=== PATIENT | female | born 1940 | race Caucasian/White ===

== ENCOUNTER → 2019-03-23 10:37 | Outpatient (CLI) | payer MEDICARE, OTHER, SELFPAY ==
--- NOTE | 2019-03-23 | DI.MRI.S_ITS ---
PROCEDURE: MR LUMBAR SPINE WO CON INDICATIONS: LUMBAR SPINE PAIN TECHNIQUE: Noncontrast sagittal T1 spin echo and T2 fast echo, sagittal STIR, axial T1 and T2 fast spin echo through the lumbar spine. In cases with scoliosis, additional coronal T2 fast spin echo may be performed. COMPARISON: None. FINDINGS: Image quality: Excellent. Alignment and Curvature: There is normal bony alignment. Bone Marrow: Marrow is of normal overall signal. No acute vertebral body compression fractures. Spinal Cord: Conus medullaris terminates at the T12-L1 level. Visualized cord demonstrates normal signal and size. Paraspinous Soft Tissues: No paravertebral masses. T11-T12: Chronic disc height loss. No canal stenosis or foraminal stenosis. Facets are unremarkable. T12-L1: Mild disc bulge. No canal stenosis or foraminal stenosis. Mild facet hypertrophy. L1-L2: Minimal disc bulge. No canal stenosis or foraminal stenosis. Bilateral facet hypertrophy. L2-L3: Moderate disc bulge. Facet and ligament hypertrophy. Borderline canal stenosis. Patent foramina. L3-L4: Moderate chronic disc height loss. Moderate multifactorial canal stenosis secondary to disc bulge and facet and ligament hypertrophy. Moderate left foraminal narrowing with effacement of the left L3 nerve root sleeve. L4-L5: Moderate to severe chronic disc height loss. Diffuse disc bulge with small inferiorly extruded disc material eccentric to the right. Moderate to severe multifactorial canal stenosis secondary to disc bulge and facet and ligament hypertrophy. Mild bilateral foraminal narrowing. L5-S1: Mild disc height loss. No canal stenosis. Bilateral facet hypertrophy. Mild bilateral foraminal narrowing. IMPRESSION: 1. Multifactorial canal stenosis is moderate at L3-L4 and moderate to severe at L4-L5. 2. Findings at L4-L5 include a small right paracentral inferior disc extrusion 3. Multilevel facet hypertrophy. 4. Multilevel foraminal narrowing as described above. Dictated by: Rene Arzate M.D. on 03/23/2019 at 11:26 Approved by: Rene Arzate M.D. on 03/23/2019 at 11:38
== END ==
PROVIDERS: PCP Family Medicine; Visit Provider Family Medicine
DX: M51.26 Other intervertebral disc displacement, lumbar region (principal); M48.061 Spinal stenosis, lumbar region without neurogenic claudication
CPT/HCPCS: 72148

== ENCOUNTER → 2019-06-01 15:18 | Outpatient (CLI) | payer MEDICARE, OTHER, SELFPAY ==
--- NOTE | 2019-06-01 15:22 | DI.RAD.S_ITS ---
PROCEDURE: XR HIP W PEL IF DONE LT MIN 4V INDICATIONS: Lumbosacral spondylosis TECHNIQUE: AP pelvis with lateral view(s) of the bilateral hip(s). COMPARISON: None. FINDINGS: Bones: No fractures or dislocations. Pelvic ring appears intact. No suspicious bony lesions. Moderate left hip joint osteophyte is is seen. Mild right hip joint osteoarthritis is also noted. No evidence of avascular necrosis of femoral head. Degenerative disc disease in visualized lower lumbar spine is seen. Soft tissues: The visualized bowel gas pattern is normal. No suspicious soft tissue calcifications. 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 No fracture or dislocation. No evidence of avascular necrosis of femoral head. Dictated by: Denis Diane M.D. on 06/01/2019 at 16:20 Approved by: Denis Diane M.D. on 06/01/2019 at 16:21
--- NOTE | 2019-06-01 15:22 | DI.RAD.S_ITS ---
PROCEDURE: XR LUMBAR SPINE MIN 4V INDICATIONS: Lumbosacral spondylosis TECHNIQUE: 5 views of the lumbar spine were acquired. COMPARISON: None. FINDINGS: Bones: 5 nonrib-bearing vertebrae are present. There is minimal anterolisthesis of L3 on L4. No vertebral body compression fractures. Degenerative endplate changes throughout lumbar spine is seen. Bilateral facet arthrosis are also noted. No suspicious bony lesions. Soft tissues: Overlying bowel gas pattern is normal. No suspicious soft tissue calcifications. Oblique images: No gross pars defects. Suggestion of bilateral bony foraminal narrowing at L4-5 and L5-S1 levels are seen. IMPRESSION: Grade 1 anterolisthesis of L3 on L4. No acute compression fracture. No gross pars defects. Degenerative disc disease throughout lumbar spine. Suggestion of bilateral bony foraminal narrowing at L4-5 and L5-S1 levels. Dictated by: Denis Diane M.D. on 06/01/2019 at 16:21 Approved by: Denis Diane M.D. on 06/01/2019 at 16:22
== END ==
PROVIDERS: PCP Family Medicine; Visit Provider Physical Medicine & Rehabilitation
DX: M16.0 Bilateral primary osteoarthritis of hip (principal); M47.27 Other spondylosis with radiculopathy, lumbosacral region; M51.16 Intervertebral disc disorders with radiculopathy, lumbar region; M43.16 Spondylolisthesis, lumbar region
CPT/HCPCS: 72110; 73522; 99215

== ENCOUNTER 2019-07-21 11:55 | Outpatient (CLI) | payer MEDICARE, OTHER, SELFPAY ==
[2019-07-21] VITALS (7 sets, daily range): BP systolic 127–159; BP diastolic 55–85; PULSE 64–79; RESP 16; TEMP 36.2; O2SAT 96–98
--- NOTE | 2019-07-21 11:57 | DI.RAD.S_ITS ---
PROCEDURE: PAIN L/S TRANSFORAMINAL INJECT INDICATIONS: INTERVERTEBRAL DISC DISPLACEMENT FINDINGS: Fluoroscopic spot filming was performed to verify placement of spinal needles at the L4-L5 level(s), as labeled on the films. Appropriate location(s) of the needle tip(s) was confirmed by injection of iodinated contrast. Dictated by: Harmeet Quintanilla M.D. on 07/21/2019 at 14:53 Approved by: Harmeet Quintanilla M.D. on 07/21/2019 at 14:54
[2019-07-21] MEDS: fentaNYL 100 MCG/2 ML INJ 50 MCG IV (13:19)
[2019-07-21] MEDS: MIDAZOLAM 5 MG/5 ML VIAL IV (13:19)
[2019-07-21] MEDS: IOPAMIDOL 15 ML VIAL 3 ML INJ (13:25)
[2019-07-21] MEDS: BUPIVACAINE 0.25% (PF) VIAL 2 ML INJ (13:26)
[2019-07-21] MEDS: BETAMETHASONE 30 MG/5 ML MDV 6 MG INJ (13:26)
[2019-07-21] MEDS: DEXAMETHASONE 10 MG/ML VIAL 20 MG INJ (13:27)
--- NOTE | 2019-07-21 13:29 | PC.NURSE ---
ASSISTING PT OFF TABLE AND TRANSPORTING TO POST PROC AREA IN STABLE CONDITION.
--- NOTE | 2019-07-21 13:31 | P.PCN_ITS ---
Procedures Date/Time Date of procedure: 07/21/19 Time of procedure: 13:32 General Procedure description: PREOP DIAGNOSIS 1. FORMAINAL STENOSIS WITH LE SYMPTOMS POST OP DIAGNOSIS 1. FORMAINAL STENOSIS WITH LE SYMPTOMS PROCEDURES 1. FLUOROSCOPICALLY GUIDED CONTRAST CONTROLLED TRANSFORAMINAL EPIDURAL STEROID INJECTION - LEFT L4/5 PHYSICIAN: Yovanny King DO INDICATIONS: Batsheva is referred by for treatment of Foraminal Stenosis with Left LE Symptoms FINDINGS Foraminal Nerve Root Compression secondary to disc disease and facet hypertrophy DESCRIPTION OF PROCEDURE: Following review of allergy and review of potential side effects and complications, including, but not necessarily limited to, infection, allergic reaction, local tissue breakdown, stroke, temporary or permanent nerve injury, paralysis, and possible , the patient indicated that the patient understood and agreed to proceed. An informed consent document was signed by the patient, witnessed by a nurse, and placed in the patient's chart. Additionally, other treatment options including medications, modalities, and physical therapy were reviewed with the patient. After review of previous anaesthesic history and IV conscious sedation the patient was deemed safe to proceed with todays procedure with IV conscious sedation as ASA class II designation. Safety time-out was performed to confirm patient ID, procedure to be performed and site of procedure. IV sedation was accomplished with a combination of 2mg of Versed and 50mcg of Fentanyl administered by the RN after DO order, titrated to patient comfort during the course of the procedure while the patient remained responsive to all verbal commands In the prone position following sterile prep and drape of the lumbar region, the left L4/5 posterior neuroforamen was identified fluoroscopically. The skin was anesthetized via a 25-gauge 1.5-inch needle with 1% lidocaine solution. At this point, a 25-gauge 3.5-inch spinal needle was atraumatically introduced and advanced under fluoroscopic guidance through the posterior left L4/5 neuroforamen to approximately the anterior aspect of the canal. Depth was confirmed on lateral view. Following negative aspiration, injection of approx imately 1.5 cc of Isovue 200 under live fluoroscopy in the AP view confirmed excellent flow along the nerve root, into the epidural space without vascular or intrathecal uptake observed Radiological data, including multiple fluoroscopic views of the lumbosacral spine, reveal a spinal needle at the left L4/5 posterior neuroforamen. Subsequent views show flow of contrast material flowing superiorly and inferiorly along the nerve root confirming epidural flow. Subsequently, a test dose of 1.5 cc of 1% lidocaine solution was administered and patient was observed for two minutes for signs or symptoms of complications, including abdominal pain, shortness of breath, bilateral upper or lower extremity weakness, nausea and vomiting, prior to steroid injection. At this point, a total of 3cc or 20mg of dexamethasone and 6mg of betamethasone was injected without incident. The procedure tolerated the procedure well without signs or symptoms of complications prior to transfer to the recovery area continued monitoring without incident. The patient was then transferred to the recovery area where they were observed for an appropriate time after the injection. The patient reported a VAS score of 7 prior to the procedure and a post- procedure VAS of 0. Total Fluoroscopy Time: 20.9 seconds Total Conscious Sedation Time: 24min POST OP INSTRUCTIONS The patient was provided a Pain Log to continue to record their response to the target-specific procedure prior to follow-up visit with their referring physician. Additionally, specific post-injection care instructions and a contact number to our office were provided if concerns arise regarding possible complications associated with the procedure are suspected. Yovanny King DO Complications: none
== END 2019-07-21 13:56 ==
LOC: RAD 11:56
PROVIDERS: PCP Family Medicine; Visit Provider Physical Medicine & Rehabilitation
DX: M48.061 Spinal stenosis, lumbar region without neurogenic claudication (principal); M51.16 Intervertebral disc disorders with radiculopathy, lumbar region
CPT/HCPCS: 64483; 99152; J0702; J1100; J2250; J3010

== ENCOUNTER 2019-10-20 12:16 | Outpatient (CLI) | payer MEDICARE, OTHER, SELFPAY ==
--- NOTE | 2019-10-20 12:18 | DI.RAD.S_ITS ---
PROCEDURE: PAIN L INTERLAMINAR/CAUDAL INJ INDICATIONS: SPONDYLOSIS FINDINGS: Fluoroscopic spot filming was performed to verify placement of spinal needles at the L4-L5 level(s), as labeled on the films. Appropriate location(s) of the needle tip(s) was confirmed by injection of iodinated contrast. Dictated by: Harmeet Quintanilla M.D. on 10/20/2019 at 14:00 Approved by: Harmeet Quintanilla M.D. on 10/20/2019 at 14:00
[2019-10-20 12:45] VITALS: BP 130/61; PULSE 72; RESP 16; TEMP 36.5; O2SAT 95
[2019-10-20 13:23] VITALS: BP 179/77; PULSE 72; RESP 16; O2SAT 100
[2019-10-20 13:28] VITALS: BP 170/76; PULSE 79; RESP 16; O2SAT 100
[2019-10-20] MEDS: BETAMETHASONE 30 MG/5 ML MDV 6 MG INJ (13:31)
[2019-10-20] MEDS: IOPAMIDOL 15 ML VIAL 3 ML INJ (13:31)
[2019-10-20] MEDS: BUPIVACAINE 0.25% (PF) VIAL 2 ML INJ (13:31)
[2019-10-20 13:32] VITALS: BP 184/71; PULSE 76; RESP 16; O2SAT 100
[2019-10-20] MEDS: DEXAMETHASONE 10 MG/ML VIAL 20 MG INJ (13:32)
--- NOTE | 2019-10-20 13:33 | PC.NURSE ---
ASSISTING PT OFF TABLE AND TRANSPORTING TO POST PROC AREA. PT WAS NOT SEDATED DURING PROC. PASSING RN CARE OF PT OFF TO WYATT Sheikh RN.
--- NOTE | 2019-10-20 13:34 | P.PCN_ITS ---
Procedures Date/Time Date of procedure: 10/20/19 Time of procedure: 13:34 General Procedure description: PROVIDER: Yovanny King DO Operative Note PREOP DIAGNOSIS 1. HNP WITH RADICULAR FEATURES, 2. MULTILEVEL CENTRAL STENOSIS, POST OP DIAGNOSIS 1. HNP WITH RADICULAR FEATURES, 2. MULTILEVEL CENTRAL STENOSIS PROCEDURES 1. FLUORSCOPICALLY GUIDED CONTRAST CONTROLLED INTERLAMINAR EPIDURAL STEROID INJECTION -L4/5 PHYSICIAN: Yovanny King DO INDICATIONs: Batsheva is referred by for treatment of Bilateral Foraminal Stenosis R>L LE symptoms. FINDINGS Multilevel Central Spinal Stenosis with Nerve Root Compression DESCRIPTION OF PROCEDURE Fluoroscopically guided, contrast-controlled L4/5 translaminar epidural steroid injection. Following review of allergy and review of potential side effects and complications, including, but not necessarily limited to, infection, allergic reaction, local tissue breakdown, temporary as well as permanent nerve injury, paralysis, stroke and possible , the patient indicated that the patient understood and agreed to proceed. An informed consent document was signed by the patient, witnessed by a nurse, and placed in the patient's chart. Additionally, other treatment options including modalities, medications, and physical therapy were reviewed with the patient. After review of previous anaesthesic history and IV conscious sedation the patient was deemed safe to proceed with todays procedure with IV conscious sedation as ASA class II designation. Safety time-out was performed to confirm patient ID, procedure to be performed and site of procedure. IV sedation was de emed unnecessary and thus not administered by the RN after DO order, titrated to patient comfort during the course of the procedure while the patient remained responsive to all verbal commands In the prone position, following sterile prep and drape of the lumbar region, the L4/5 translaminar space was identified fluoroscopically. The skin was anesthetized via a 25-gauge, 1.5-inch needle with 1% lidocaine solution. At this point, a 22-gauge short bevel spinal needle was atraumatically introduced and advanced under fluoroscopic guidance into the region of the L4/5 translaminar space. Depth was confirmed on lateral view. Radiological data, including multiple fluoroscopic views of the lumbar spine, reveal a spinal needle at the L4/5 translaminar space. Lateral views then show placement of the needle in the epidural space. Subsequent views show contrast material flowing superiorly and inferiorly in the epidural space. No vascular or intrathecal uptake is observed. At this point, using loss of resistance technique with saline and air, the epidural space was entered. This was confirmed following negative aspiration with injection of approximately 1.5 cc of Isovue 200, showing excellent epidural flow without vascular or intrathecal uptake. At this point, 1 cc of 0.25%marcaine solution combined with 3cc or 20mg of dexamethasone and 6mg betamethasone was injected without incident. The patient tolerated the procedure well without signs or symptoms of complications prior to transfer to the recovery area continued monitoring without incident. The patient was then transferred to the recovery area where they were observed for an appropriate period of time after the injection. The patient reported a VAS score of 6 prior to the procedure and a post- procedure VAS of 0. Total Fluoroscopy Time: 11.8 seconds, 8.99 mGy Total Conscious Sedation Time: 24min POST OP INSTRUCTIONS The patient was provided a Pain Log to continue to record their response to the target-specific procedure prior to follow-up visit with their referring physician. Additionally, specific post-injection care instructions and a contact number to our office were provided if concerns arise regarding possible complications associated with the procedure are suspected. Yovanny King DO Complications: none
[2019-10-20 13:38] VITALS: BP 144/69; PULSE 78; RESP 17; TEMP 36.4; O2SAT 98
--- NOTE | 2019-10-20 13:56 | PC.NURSE ---
pt returned from post procedure via w/c. she is alert and did not require any light sedation medications. She was escorted by foot to ED entrance in stable condition.
== END 2019-10-20 13:45 | disposition home or self-care (01) ==
LOC: RAD 12:17
PROVIDERS: PCP Family Medicine; Referring Provider Physical Medicine & Rehabilitation; Visit Provider Physical Medicine & Rehabilitation
DX: M51.16 Intervertebral disc disorders with radiculopathy, lumbar region (principal); M48.061 Spinal stenosis, lumbar region without neurogenic claudication
CPT/HCPCS: 62323; J0702; J1100; J2250; J3010

== ENCOUNTER → 2020-06-15 11:22 | Outpatient (CLI) | payer MEDICARE, OTHER, SELFPAY ==
--- NOTE | 2020-06-15 | DI.MRI.S_ITS ---
PROCEDURE: MR BRAIN (IAC) WWO CON INDICATIONS: ASYMMETRIC HEARING LOSS TECHNIQUE: Noncontrast sagittal T1 spin echo, axial FLAIR, axial gradient echo, axial diffusion and ADC through the brain. Axial thin-slice 3D CISS, coronal TruFISP, axial T1 spin echo with fat saturation through the internal auditory canals. After the administration of contrast, thin slice axial and coronal T1 spin echo with fat saturation through the internal auditory canals, and axial T1 spin echo with fat saturation through the brain. COMPARISON: None. FINDINGS: Image quality: Excellent. Cerebellopontine angles: No cerebellopontine angle masses. Inner ear structures appear normally formed. No suspicious enhancement in the internal auditory canal or along the course of the 7th cranial nerve. CSF spaces: Ventricles are normal in size and shape. No extra-axial fluid collections. Basal cisterns are patent. Brain: No intracranial bleeds or mass effects. Scattered small white matter changes, probably represent chronic microvascular ischemic disease, versus statistically less likely demyelination or other infectious, inflammatory, neurodegenerative etiology, technically nonspecific. Norman-white matter interface is intact. No abnormal intracranial enhancement. Diffusion weighted images demonstrate no acute ischemic insults. Brainstem appears normal. Normal intravascular flow voids are present. Skull and face: Calvarial marrow signal is normal. Orbits appear normal. Sinuses: Sinuses and mastoids are clear. IMPRESSION: No discrete mass or suspicious abnormal enhancement involving the IAC or cerebellopontine angles bilaterally. Dictated by: Harmeet Quintanilla M.D. on 06/15/2020 at 13:18 Approved by: Harmeet Quintanilla M.D. on 06/15/2020 at 13:35
== END ==
PROVIDERS: PCP Family Medicine; Referring Provider Oral & Maxillofacial Surgery; Visit Provider Oral & Maxillofacial Surgery
DX: H91.93 Unspecified hearing loss, bilateral (principal)
CPT/HCPCS: 70553

== ENCOUNTER → 2021-11-07 09:59 | Outpatient (CLI) | payer MEDICARE, OTHER, SELFPAY ==
[2021-11-07 10:34] LABS: COVID19 -Nasal RAPID Negative (Negative)
== END ==
PROVIDERS: PCP Family Medicine; Referring Provider Internal Medicine; Visit Provider Internal Medicine
DX: Z20.822 Contact with and (suspected) exposure to COVID-19 (principal)
CPT/HCPCS: 87635; C9803

== ENCOUNTER → 2021-11-07 10:01 | Outpatient (CLI) | payer MEDICARE, OTHER, SELFPAY ==
--- NOTE | 2021-11-13 11:30 | PM.PFT.1 ---
Pulmonary Function Test Referral & Results Date Patient Seen: 11/07/21 Requesting provider: Jelani Parry Results: The spirometry demonstrates an FVC of 1.72 L which is 78% of predicted. The FEV1 was measured at 1.11 L which is 68% of predicted. The FEV1/FVC ratio was 64 which is 87% of predicted. Following the administration of bronchodilator there was a 12% improvement in FEV1 and a 21% improvement in FEF 25-75% Lung volumes show an SVC of 2.17 L which is 93% of predicted. The diffusing capacity was measured at 15.52 which is 76% of predicted. No hemoglobin value was provided, so no correction for potential anemia could be made, if appropriate. The maximum voluntary ventilation was severely reduced Interpretation: This study demonstrates perhaps mild obstructive lung disease based on reduction FEV1 and minimal improvement as above following bronchodilator. Lung volumes are normal Diffusing capacity is minimally reduced
== END ==
PROVIDERS: PCP Family Medicine; Referring Provider Student in an Organized Health Care Education/Training Program; Visit Provider Student in an Organized Health Care Education/Training Program
DX: J45.20 Mild intermittent asthma, uncomplicated (principal); Z87.891 Personal history of nicotine dependence; Z20.822 Contact with and (suspected) exposure to COVID-19
CPT/HCPCS: 87635; 94060; 94726; 94729; C9803

== ENCOUNTER → 2022-12-23 11:30 | Outpatient (CLI) | payer MEDICARE, OTHER, SELFPAY ==
[2022-12-23 12:41] LABS: Add Manual Diff / Slide Review NO; Basophils Absolute Auto 0 /uL (0-100); Basophils Percent Auto 0.4 % (0-2); Eosinophils Absolute Auto 200 /uL (0-450); Eosinophils Percent Auto 2.7 % (2-4); Hematocrit 38.8 % (36-46); Hemoglobin 12.8 g/dL (12.0-16.0); Lymphocytes Absolute Auto 1700 /uL (1100-4500); Lymphocytes Percent Auto 26.6 % (25-40); Mean Corpuscular HGB Conc 33.1 % (30-36); Mean Corpuscular Hemoglobin 29.5 PG (26-34); Monocytes Absolute Auto 400 /uL (0-900); Monocytes Percent Auto 5.5 % (3-14); Neutrophils Absolute Auto 4200 /uL (1500-7000); Neutrophils Percent Auto 64.8 % (50-75); Platelet Count 189 X10^3/uL (150-400); Red Blood Cell Count 4.36 X10^6/uL (4.0-5.2); Red Cell Distribution Width 14.9 % (11.6-14.8); White Blood Cell Count 6.5 X10^3/uL (4.5-11.0)
[2022-12-23 12:58] LABS: Alanine Aminotransferase 20 IU/L (<35); Albumin 3.5 g/dL (3.5-5.0); Albumin Globulin Ratio 1.3 (1.0-2.8); Alkaline Phosphatase 80 U/L (38-126); Aspartate Aminotransferase 24 IU/L (14-36); BUN Creatinine Ratio 26.3 (6-22); Bilirubin Total 0.5 mg/dL (0.2-1.3); Blood Urea Nitrogen 25 mg/dL (7-17); Calcium 8.3 mg/dL (8.4-10.2); Carbon Dioxide 32 mmol/L (22-32); Chloride 101 mmol/L (98-107); Estimated Glomerular Filt Rate 60 mL/min (>60); Globulin 2.7 g/dL (1.7-4.1); Glucose 98 mg/dL (80-110); HEMOLYSIS < 15 (0-50); Potassium 3.7 mmol/L (3.4-5.1); Sodium 138 mmol/L (137-145); Total Protein 6.2 g/dL (6.3-8.2); Uric Acid 5.1 mg/dL (2.5-6.2)
[2022-12-23 13:03] LABS: Erythrocyte Sedimentation Rate 21 MM/HR (0-20)
[2022-12-23 13:04] LABS: High Sensitivity CRP - Cardiac 8.1 mg/L (1.0-3.0)
[2022-12-23 13:08] LABS: Rheumatoid Factor < 8.6 IU/mL (<12.0)
[2022-12-23 13:29] LABS: Thyroid Stimulating Hormone 2.75 uIU/mL (0.47-4.68)
[2022-12-24 14:40] LABS: SS A Ro Sjogrens Antibody < 0.2 AI (0.0-0.9); SS B La Sjogrens Antibody < 0.2 AI (0.0-0.9)
[2022-12-26 15:26] LABS: ANA Screen, IFA Negative (.)
== END ==
PROVIDERS: PCP Family Medicine; Referring Provider Ophthalmology; Visit Provider Ophthalmology
DX: H57.10 Ocular pain, unspecified eye (principal); E03.8 Other specified hypothyroidism; M79.7 Fibromyalgia
CPT/HCPCS: 36415; 80053; 84443; 84550; 85025; 85651; 86038; 86140; 86235; 86430